=== PATIENT | male | born 1960 | race Caucasian/White ===

== ENCOUNTER 2020-04-24 17:39 | Outpatient (CLI) | payer OTHER, SELFPAY | END 2020-04-24 17:40 | disposition home or self-care (01) | LOC: ANHCOVIDVC 17:40 | PROVIDERS: PCP Orthopaedic Surgery | DX: Z23 Encounter for immunization (principal) | CPT/HCPCS: 0001A; 91300 ==

== ENCOUNTER 2020-05-15 17:40 | Outpatient (CLI) | payer OTHER, SELFPAY | END 2020-05-15 17:41 | disposition home or self-care (01) | LOC: ANHCOVIDVC 17:40 | PROVIDERS: PCP Orthopaedic Surgery | DX: Z23 Encounter for immunization (principal) | CPT/HCPCS: 0002A; 91300 ==